=== PATIENT | male | born 1975 | race Hispanic/Latino ===

== ENCOUNTER 2021-03-31 13:00 | Emergency (ER) | payer OTHER ==
[~2021-03-31] VITALS: Ht 182.9 cm; Wt 113.4 kg
[2021-03-31] MEDS ORDERED: ONDANSETRON HCL INJ 2MG/ML 2ML 2 MG/ML VIAL IV STA (13:21)
[2021-03-31] MEDS ORDERED: MORPHINE SULFATE INJ 4 MG/ML INJ 1ML IV PRN (13:30)
[2021-03-31] MEDS ORDERED: IBUPROFEN600 MG PO (16:52)
[2021-03-31 18:28] VITALS: BP 127/84
== END 2021-03-31 18:39 | disposition home or self-care (01) ==
LOC: ER 13:17
DX: M25.552 Pain in left hip (principal); M25.562 Pain in left knee; W17.89XA Other fall from one level to another, initial encounter; Y92.89 Other specified places as the place of occurrence of the external cause
CPT/HCPCS: 72192; 73502; 73552; 73560; 73590; 73610; 73700; 99285; J2270; J2405